=== PATIENT | male | born 1990 | race Hispanic/Latino ===

== ENCOUNTER 2021-01-26 16:34 | Emergency (ER) | payer BC ==
[2021-01-26] MEDS ORDERED: IBUPROFEN 400 MG TAB ONE (20:24)
[2021-01-26] MEDS ORDERED: ONDANSETRON 4 MG (ODT) TAB ONE (20:25)
--- NOTE | 2021-01-26 20:54 | EDPHYS ---
Physician Documentation [facility] Name: Ace Sullivan Jr Age: 30 yrs Sex: Male : 1990 Arrival Date: 01/26/2021 Time: 16:41 Bed 22 Private MD: ED Physician Jonathan Will HPI: 01/26 20:05 This 30 yrs old Male presents to ER via Ambulatory with complaints of Covid +, jmm Fever, Cough. 20:05 The patient or guardian reports cough. Onset: The symptoms/episode began/occurred jmm gradually, 8 day(s) ago. Modifying factors: The symptoms are alleviated by nothing. the symptoms are aggravated by nothing. Associated signs and symptoms: Pertinent positives: diarrhea, fever, vomiting. The patient has not experienced similar symptoms in the past. Patient states diarrhea has now resolved. Will vomit fluids. Denies abdominal pain. Denies shortness of breath. . Historical: - Allergies: 16:58 No Known Allergies; ll1 - PMHx: 16:58 None; ll1 - PSHx: 16:58 None; ll1 - Immunization history:: Flu vaccine is not up to date. - Social history:: Smoking status: Patient denies any tobacco usage or history of. ROS: 20:05 Constitutional: Positive for body aches, fever. jmm 20:05 Respiratory: Positive for cough. 20:05 Abdomen/GI: Positive for vomiting, diarrhea. 20:05 All other systems are negative. Exam: 20:05 Constitutional: This is a well developed, well nourished patient who is awake, alert, jmm and in no acute distress. Head/Face: atraumatic. Eyes: EOMI, no conjunctival erythema appreciated ENT: Moist Mucus Membranes Neck: Trachea midline, Supple Chest/axilla: Normal chest wall appearance and motion. Cardiovascular: Regular rate and rhythm. No edema appreciated Respiratory: Normal respirations, no respiratory distress appreciated 20:05 Back: Normal ROM Skin: General appearance color normal MS/ Extremity: Moves all extremities, no obvious deformities appreciated, no edema noted to the lower extremities Neuro: Awake and alert, normal gait Psych: Behavior is normal, Mood is normal, Patient is cooperative and pleasant 20:05 Abdomen/GI: Inspection: abdomen appears normal, Bowel sounds: normal, Palpation: abdomen is soft and non-tender, in all quadrants. Vital Signs: 16:55 BP 121 / 70; Pulse 88; Resp 17; Temp 100.0; Pulse Ox 96% ; Weight 97.07 kg; Height 5 ll1 ft. 5 in. (165.10 cm); Pain 0/10; 19:59 BP 117 / 67; Pulse 98; Resp 18; Temp 102.8(O); Pulse Ox 95% on R/A; jb4 16:55 Body Mass Index 35.61 (97.07 kg, 165.10 cm) ll1 MDM: 19:56 Patient medically screened. [facility] 20:49 Data reviewed: vital signs, nurses notes. Counseling: I had a detailed discussion with charles the patient and/or guardian regarding: the historical points, exam findings, and any diagnostic results supporting the discharge/admit diagnosis, the need for outpatient follow up, to return to the emergency department if symptoms worsen or persist or if there are any questions or concerns that arise at home. ED course: Patient tolerates PO in the ED. Patient advised to follow up with pcp and otherwise given strict return precautions. patient understood and agrees with the plan of care. abdomen non tender to palpation. I do not suspect an acute intraabdominal process. . 01/26 20:04 Order name: PO challenge; Complete Time: 20:15 [facility] Administered Medications: 20:09 Drug: Zofran (Ondansetron) 4 mg Route: PO; [facility] 21:03 Follow up: Response: No adverse reaction bb 20:15 Drug: Motrin (ibuprofen) 800 mg Route: PO; jb 21:03 Follow up: Response: No adverse reaction bb Disposition: 01/27 10:36 Co-signature as Attending Physician, Jonathan Will MD I agree with the assessment and irina plan of care. Disposition: 01/26/21 20:53 Discharged to Home. Impression: Coronavirus infection, unspecified, Vomiting, Diarrhea, unspecified. - Condition is Stable. - Discharge Instructions: Food Choices to Help Relieve Diarrhea, Adult, Nausea and Vomiting, Adult, COVID-19. - Prescriptions for Zofran ODT 4 mg Oral tablet,disintegrating - place 1 tablet by TRANSLINGUAL route every 4-6 hours; 20 tablet. ivermectin 3 mg Oral tablet - take 6 tablet by ORAL route as directed One dose now and another dose on day 3; 12 tablet. - Medication Reconciliation Form, Thank You Letter, Antibiotic Education, Prescription Opioid Use form. - Follow up: Private Physician; When: 2 - 3 days; Reason: Recheck today's complaints, Continuance of care, Re-evaluation by your physician. - Notes: Please take 10,000 IU of Vitamin D a day 1000 mg of NAC (N-Acetyl Cysteine) three times a day 50 mg of zinc a day 500 mg of quercetin twice a day Signatures: Jonathan Will MD MD cha Mickail, Joel, PA PA jmm Ballard, Brenda, RN RN bb Bill Johnson RN RN jb4 Judit Castañeda RN RN ll1 Corrections: (The following items were deleted from the chart) 01/26 21:05 20:53 01/26/2021 20:53 Discharged to Home. Impression: Coronavirus infection, bb unspecified; Vomiting; Diarrhea, unspecified. Condition is Stable. Forms are Medication Reconciliation Form, Thank You Letter, Antibiotic Education, Prescription Opioid Use. Follow up: Private Physician; When: 2 - 3 days; Reason: Recheck today's complaints, Continuance of care, Re-evaluation by your physician. barbi
--- NOTE | 2021-01-26 20:54 | ER ---
Nurse's Notes [facility] Name: Ace Sullivan Jr Age: 30 yrs Sex: Male : 1990 Arrival Date: 01/26/2021 Time: 16:41 Bed 22 Private MD: Diagnosis: Coronavirus infection, unspecified;Vomiting;Diarrhea, unspecified Presentation: 01/26 16:55 Chief complaint: Patient states: Covid positive 8 days ago. N/V/D for 4 days. Still has ll1 fever and cough. Coronavirus screen: Client denies travel out of the [place] in the last 14 days. chills, congestion, cough unrelated to allergies, diarrhea, fatigue, fever, nausea, shaking with chills, vomiting. Client presents with at least one sign or symptom that may indicate coronavirus-19. Standard/surgical mask placed on the client. Ebola Screen: Patient denies travel to an Ebola-affected area in the 21 days before illness onset. Initial Sepsis Screen: Does the patient meet any 2 criteria? No. Patient's initial sepsis screen is negative. Does the patient have a suspected source of infection? Yes: Productive cough/pneumonia. Risk Assessment: Do you want to hurt yourself or someone else? Patient reports no desire to harm self or others. Onset of symptoms was January 18, 2021. 16:55 Method Of Arrival: Ambulatory ll1 16:55 Acuity: JODY 3 ll1 Historical: - Allergies: 16:58 No Known Allergies; ll1 - PMHx: 16:58 None; ll1 - PSHx: 16:58 None; ll1 - Immunization history:: Flu vaccine is not up to date. - Social history:: Smoking status: Patient denies any tobacco usage or history of. Screenin:03 Abuse screen: Denies threats or abuse. Nutritional screening: No deficits noted. bb Tuberculosis screening: No symptoms or risk factors identified. Fall Risk None identified. Assessment: 20:00 General: Appears in no apparent distress. comfortable, Behavior is calm, cooperative, jb4 appropriate for age. Pain: Denies pain. Neuro: Level of Consciousness is awake, alert, obeys commands, Oriented to person, place, time, situation. Cardiovascular: Patient's skin is warm and dry. Respiratory: Airway is patent Respiratory effort is even, unlabored, Respiratory pattern is regular, symmetrical. GI: Reports diarrhea, nausea, vomiting. : No signs and/or symptoms were reported regarding the genitourinary system. EENT: No signs and/or symptoms were reported regarding the EENT system. Derm: Skin is intact, Skin is pink, warm \T\ dry. Musculoskeletal: Circulation, motion, and sensation intact. Range of motion: intact in all extremities. 21:02 Reassessment: Patient is alert, oriented x 3, equal unlabored respirations, skin bb warm/dry/pink. pt verbalized understanding of and agrees to plan of care discharge instructions given pt ambulated with steady gait to exit. Vital Signs: 16:55 BP 121 / 70; Pulse 88; Resp 17; Temp 100.0; Pulse Ox 96% ; Weight 97.07 kg; Height 5 ll1 ft. 5 in. (165.10 cm); Pain 0/10; 19:59 BP 117 / 67; Pulse 98; Resp 18; Temp 102.8(O); Pulse Ox 95% on R/A; jb4 16:55 Body Mass Index 35.61 (97.07 kg, 165.10 cm) ll1 ED Course: 16:41 Patient arrived in ED. ds1 16:58 Triage completed. ll1 16:58 Arm band placed on. ll1 19:55 [facility] 19:55 Jonathan Will MD is Attending Physician. charles 21:04 No provider procedures requiring assistance completed. Patient did not have IV access bb during this emergency room visit. 21:05 Patient has correct armband on for positive identification. bb Administered Medications: 20:09 Drug: Zofran (Ondansetron) 4 mg Route: PO; jb 21:03 Follow up: Response: No adverse reaction bb 20:15 Drug: Motrin (ibuprofen) 800 mg Route: PO; jb4 21:03 Follow up: Response: No adverse reaction bb Outcome: 20:53 Discharge ordered by . charles 21:05 Discharged to home ambulatory. bb 21:05 Condition: stable 21:05 Discharge instructions given to patient, Instructed on discharge instructions, follow up and referral plans. medication usage, Demonstrated understanding of instructions, follow-up care, medications, Prescriptions given X 2. 21:05 Patient left the ED. bb Signatures: MickaLuis antunez PA PA jmm Sanford, Demi ds1 Taylor De Oliveira, RN RN bb Bill Johnson, RN RN jb4 Judit Castañeda RN RN ll1
[2021-01-26 21:17] VITALS: BP 117/67; TEMP 102.8; O2SAT 95
== END 2021-01-26 21:05 | disposition home or self-care (01) ==
LOC: ER 16:34
DX: U07.1 COVID-19 (principal); R11.10 Vomiting, unspecified; R19.7 Diarrhea, unspecified
CPT/HCPCS: 99283